=== PATIENT | male | born 1940 | race Caucasian/White ===

== ENCOUNTER 2018-04-12 06:44 | Day surgery (SDC) | payer MEDICARE, BC ==
[2018-04-12] MEDS ORDERED: Sodium Chloride 0.9% 10 ML Syringe FLUSH PRN (06:45)
[2018-04-12] MEDS ORDERED: Lactated Ringers 1,000 ML IV SCH (06:45)
[2018-04-12] MEDS ORDERED: Lidocaine 2% 100 MG/5 ML Syringe IVPUSH ONE (08:00)
[2018-04-12] MEDS ORDERED: Midazolam 1 MG/ML 2 ML SDV IV ONE (08:00)
[2018-04-12] MEDS ORDERED: Propofol 200 MG/20 ML SDV IV ONE (08:00)
--- NOTE | 2018-04-12 08:22 | PCM.OPNOTE ---
- General Post-Op/Procedure Note Date of Surgery/Procedure: 04/12/18 Operative Procedure(s): egd with bx Findings: gastritis Pre Op Diagnosis: dyspepsia Post-Op Diagnosis: gastritis Anesthesia Technique: MAC Primary Surgeon: Robert Che Anesthesia Provider: Rochelle Hernández Pathology: stomach and esophagus Complications: None Condition: Good Free Text/Narrative:: see dictation
--- NOTE | 2018-04-12 08:31 | OR ---
DATE OF OPERATION: 04/12/2018 SURGEON: Robert Che MD PROCEDURES PERFORMED: EGD with biopsy. PREOPERATIVE DIAGNOSIS: History of dyspepsia. POSTOPERATIVE DIAGNOSIS: Gastritis. INDICATIONS FOR PROCEDURE: This is a 78-year-old white male who is referred with the above-mentioned complaints. He was offered and accepted an EGD. DESCRIPTION OF PROCEDURE: After an excellent IV sedation was administered, the bite block was inserted. The flexible endoscope was passed without difficulty down the patient's esophagus and into the stomach. The stomach was insufflated. The scope was passed through the pylorus, to second portion of the duodenum, and then slowly withdrawn. The following findings were noted. Duodenum was unremarkable. Stomach demonstrated some gastritis, especially in the area of the antrum, and biopsies were taken. GE junction measured 40 cm. Biopsies of the esophagus were taken as well, even though there was no evidence of esophagitis, due to the generalized nature of his epigastric complaints. The remainder of the esophageal exam was unremarkable. Stomach was deflated. The scope was removed. The patient tolerated the procedure well and was taken to Recovery in a good condition. /[id number] /MODL
[2018-04-12 12:55] VITALS: BP 113/76
== END 2018-04-12 10:07 | disposition home or self-care (01) ==
LOC: FB.SDS 06:44
PROVIDERS: ATTEND Surgery
DX: K29.50 Unspecified chronic gastritis without bleeding (principal); I10 Essential (primary) hypertension; F17.210 Nicotine dependence, cigarettes, uncomplicated; J44.9 Chronic obstructive pulmonary disease, unspecified; K21.9 Gastro-esophageal reflux disease without esophagitis; E03.9 Hypothyroidism, unspecified; F41.9 Anxiety disorder, unspecified; F32.9 Major depressive disorder, single episode, unspecified; Z88.5 Allergy status to narcotic agent
CPT/HCPCS: 00731; 43239; 88305; 88313; 88342; J2250; J2704; J7120; J2001